=== PATIENT | female | born 1940 | race Caucasian/White ===

== ENCOUNTER 2021-03-24 10:12 | Outpatient (CLI) | payer MEDICARE ==
[2021-03-24 20:03] LABS: SARS-CoV-2 PCR by NAA Not Detected (NotDetected)
== END 2021-03-24 10:13 | disposition home or self-care (01) ==
LOC: CSHLAB 10:12
PROVIDERS: ATTEND Internal Medicine Gastroenterology
DX: Z20.822 Contact with and (suspected) exposure to COVID-19 (principal); K63.5 Polyp of colon
CPT/HCPCS: U0003; U0005